=== PATIENT | male | born 1995 | race Caucasian/White ===

== ENCOUNTER → 2021-06-29 08:31 | Outpatient (BNVA) | payer OTHER, SELFPAY | PROVIDERS: Family Provider Nurse Practitioner Family; Visit Provider Nurse Practitioner Family | DX: Z20.822 Contact with and (suspected) exposure to COVID-19 (principal) | CPT/HCPCS: 87635 ==

== ENCOUNTER 2024-11-09 11:54 | Inpatient (IN) | payer SELFPAY ==
[2024-11-09 12:09] VITALS: BP 157/95; PULSE 88; RESP 19; TEMP 36.3; O2SAT 98; BMI 26.5
[2024-11-09 12:22] LABS: Basophils # 0.1 10^3/uL (0.0-0.1); Basophils % 0.6 %; Eosinophils # 0.2 10^3/uL (0.0-0.8); Eosinophils % 1.6 %; Hematocrit 44.5 % (37-53); Lymphocytes # 2.4 10^3/uL (0.8-4.8); Lymphocytes % 22.9 %; Mean Corpuscular HGB Conc 35.5 g/dL (30-55); Mean Corpuscular Hemoglobin 30.8 pg (27-33); Mean Corpuscular Volume 86.7 fl (82-101); Mean Platelet Volume 11.7 fL (7.4-10.4); Monocytes # 0.6 10^3/uL (0.2-0.9); Monocytes % 5.4 %; Neutrophils # 7.35 10^3/uL (1.8-7.7); Nucleated Red Blood Cells % 0 %; Platelet Count 213 10^3/cmm (157-399); Red Blood Count 5.13 10^6/uL (3.85-5.65); Red Cell Distribution Width 12.8 % (12.1-15.1); White Blood Count 10.65 10^3/uL (3.29-11.43)
[2024-11-09 12:39] LABS: Bacteria Urine None Seen /hpf; Hyaline Casts Urine 0-4 /lpf; RBC Urine 0-2 /hpf (0-2); Squamous Epithelial Cell Urine 0-5 /hpf (0-5); WBC Urine 0-5 /hpf (0-5)
[2024-11-09 12:43] LABS: Add Urine Microscopic? YES; Bilirubin Urine Neg (Negative); Blood Urine Neg (Negative); Glucose Urine UA Norm (Normal); Ketones Urine Negative (Negative); Leukocyte Esterase Urine Negative (Negative); Nitrate Urine Negative (Negative); Protein Urine Neg (Negative); Urine Appearance Clear (CLEAR); Urine Color Yellow (Yellow); Urobilinogen Urine Neg (Negative); pH Urine 8 (5-7)
[2024-11-09 12:58] LABS: Alanine Aminotransferase 15 U/L (0-41); Albumin Level 4.7 g/dL (3.5-5.2); Alkaline Phosphatase 68 U/L (40-130); Anion Gap 15.1 (5-19); Aspartate Amino Transferase 17 U/L (0-40); Blood Urea Nitrogen 11 mg/dL (6-20); Calcium 9.3 mg/dL (8.5-10.5); Carbon Dioxide 25 mmol/L (22-29); Chloride 103 mmol/L (98-107); Creatinine Clr Calc Pharmacy 121.4216; Globulin 2.9 g/dL (1.3-4.6); Glomerular Filtration Rate 89.6 mL/min (90-130); Glucose 99 mg/dL (65-115); Osmolality Calculated 287 mOsm/kg (285-295); Potassium 4.1 mmol/L (3.5-5.1); Sodium 139 mmol/L (136-145); Thyroid Stimulating Hormone 0.18 uIU/mL (0.27-4.20); Total Bilirubin 0.6 mg/dL (0.15-1.2); Total Protein 7.6 g/dL (6.6-8.7)
[2024-11-09 12:59] LABS: Acetaminophen < 5.0 ug/mL (10-30); Alcohol Level < 10 mg/dL (0-10); Amphetamines Screen Urine Positive (Negative); Barbiturates Screen Urine Negative (Negative); Benzodiazepines Screen Urine Negative (Negative); Cocaine Screen Urine Negative (Negative); Opiate Screen Urine Negative (Negative); PCP Screen Urine Negative (Negative); Salicylate < 0.3 mg/dL (3-10); THC Screen Urine Positive (Negative)
--- NOTE | 2024-11-09 14:02 | ED.C_ITS ---
HPI - Psych 2 General: Chief Complaint: Psychiatric Symptoms Stated Complaint: mhe Time Seen by Provider: 11/09/24 11:58 History of Present Illness: This patient is a 29-year-old white male who presents to the ER stating that he has been very depressed for quite some time. He states over the past month he has had thoughts of not wanting to live anymore. Has been much more severe over the past 2 days. Is been having thoughts of slitting his throat. He has done some cutting on his chest. States he does use drugs. States he has used everything but recently used meth 2 days ago. He does smoke marijuana on a regular basis. Occasionally drinks alcohol and has not drank any alcohol recently. States he is not on any medications for depression. He is never been admitted for suicidal ideation. Associated symptoms: Reports depression and suicidal ideation Related Data Home Medications ?Medication ?Instructions ?Recorded ?Confirmed No Known Home Medications 06/29/2110/13 Allergies Allergy/AdvReac Type Severity Reaction Status Date / Time No Known Allergies Allergy Verified 06/29/21 08:17 Review of Systems 2 Psych: Reports: depression and suicidal ideation PFS ED 2 PFSH: Social History (Updated 06/29/21 @ 08:17 by Ana Rojas NP) Smoking and tobacco/nicotine status: current every day tobacco/nicotine user e- cigarettes E-Cigarette Details: vaporizer device Physical Exam 2 Const: COMMON NORMALS: no acute distress, patient oriented x3 and no limitations GENERAL APPEARANCE: cooperative and comfortable HENMT: COMMON NORMALS: normocephalic, atraumatic, Normal nasal mucous membranes and turbinates present, moist oral mucous membranes and oropharynx normal HEAD & SCALP: normal to inspection, normocephalic and atraumatic F JOSE & SINUS: normal facial exam NOSE: Normal nasal mucous membranes and turbinates present Eye: COMMON NORMALS: Equal, round and reactive pupils present, EOMs intact bilaterally and conjunctivae normal GENERAL EYE: appearance normal, both eyes and all related structures CONJUNCTIVA: Yes conjunctivae normal PUPIL: Yes Equal, round and reactive pupils present Neck/C-Spine: COMMON NORMALS: supple and no JVD Chest: COMMONS NORMALS: normal inspection of the chest Resp: COMMON NORMALS: normal respiratory effort and clear to auscultation bilaterally AUSCULTATION: clear to auscultation bilaterally Cardio: COMMON NORMALS: no JVD, regular rate, regular rhythm, No gallops present (Cardio), No murmurs present (Cardio) and No rub (Cardio) RATE: r egular rate RHYTHM: regular rhythm GI: COMMON NORMALS: Normal to inspection, nondistended, normoactive bowel sounds present, Soft to palpation and non-tender AUSCULTATION: Yes normoactive bowel sounds PALPATION: Yes Soft to palpation : COMMON NORMALS: Yes no CVA tenderness BLADDER/KIDNEY EXAM: Yes no CVA tenderness Back/Pelvis: COMMON NORMALS: no CVA tenderness and thoracic and lumbar spine normal to inspection Extremity: COMMON NORMALS: normal to inspection Neuro: COMMON NORMALS: patient oriented x3 and CN's II-XII intact bilaterally Psych: COMMON NORMALS: mental status grossly normal, Normal thought process present, cooperative and speech normal APPEARANCE: Yes unkempt ATTITUDE: Y es calm ACTIVITY/MOTOR BEHAVIOR: Yes appropriate eye contact SPEECH: Yes normal speech MOOD & AFFECT: Yes depressed mood THOUGHT PROCESS: Normal thought process present THOUGHT CONTENT: Yes Suicidality present A TTENTION/CONCENTRATION: Yes attention grossly intact MEMORY/COGNITION: Yes memory grossly intact INSIGHT: questionable JUDGEMENT: Poor judgement present (Psych) Skin: COMMON NORMALS: no rashes or lesions noted, turgor normal and no jaundice GENERAL SKIN EXAM: no rashes or lesions noted and turgor normal Course 2 Vital Signs: Vital signs: Vital Signs Temperature 97.4 F L 11/09/24 12:09 Pulse Rate 88 11/09/24 12:09 Respiratory Rate 19 H 11/09/24 12:09 Blood Pressure 157/95 11/09/24 12:09 Pulse Oximetry 98 11/09/24 12:09 Oxygen Delivery Me thod Room Air 11/09/24 12:09 MDM - Psych Medical Decision Making Labs were normal. Urine drug screen was positive for THC and amphetamines. I discussed the case with Dr. Valverde, psychiatrist. He has accepted the patient. Patient will be moved to the Neuropsych Unit shortly. He is stable. Lab Data 11/09/24 12:06 11/09/24 12:06 Laboratory Results WBC 10.65 10^3/uL (3.29-11.43) 11/09/24 12:06 RBC 5.13 10^6/uL (3.85-5.65) 11/09/24 12:06 Hgb 15.80 g/dL (11.27-16.99) 11/09/24 12:06 Hct 44.5 % (37-53) 11/09/24 12:06 MCV 86.7 fl (82-101) 11/09/24 12:06 MCH 30.8 pg (27-33) 11/09/24 12:06 MCHC 35.5 g/dL (30-55) 11/09/24 12:06 RDW 12.8 % (12.1-15.1) 11/09/24 12:06 Plt Count 213 10^3/cmm (157-399) 11/09/24 12:06 MPV 11.7 fL (7.4-10.4) H 11/09/24 12:06 Neut % (Auto) 69.0 % 11/09/24 12:06 Lymph % (Auto) 22.9 % 11/09/24 12:06 [facility] % (Auto) 5.4 % 11/09/24 12:06 Eos % (Auto) 1.6 % 11/09/24 12:06 Baso % (Auto) 0.6 % 11/09/24 12:06 Neut # (Auto) 7.35 10^3/uL (1.8-7.7) 11/09/24 12:06 Lymph # (Auto) 2.4 10^3/uL (0.8-4.8) 11/09/24 12:06 [facility] # (Auto) 0.6 10^3/uL (0.2-0.9) 11/09/24 12:06 Eos # (Auto) 0.2 10^3/uL (0.0-0.8) 11/09/24 12:06 Baso # (Auto) 0.1 10^3/uL (0.0-0.1) 11/09/24 12:06 Nucleated RBC % (auto) 0 % 11/09/24 12:06 Nucleated RBCs # 0.0 /100WBC 11/09/24 12:06 Sodium 139 mmol/L (136-145) 11/09/24 12:06 Potassium 4.1 mmol/L (3.5-5.1) 11/09/24 12:06 Chloride 103 mmol/L (98-107) 11/09/24 12:06 Carbon Dioxide 25 mmol/L (22-29) 11/09/24 12:06 Anion Gap 15.1 (5-19) 11/09/24 12:06 BUN 11 mg/dL (6-20) 11/09/24 12:06 Creatinine 1.0 mg/dL (0.7-1.2) 11/09/24 12:06 GFR Calculation 89.6 mL/min (90-130) L 11/09/24 12:06 Glucose 99 mg/dL (65-115) 11/09/24 12:06 Calculated Osmolality 287 mOsm/kg (285-295) 11/09/24 12:06 Calcium 9.3 mg/dL (8.5-10.5) 11/09/24 12:06 Total Bilirubin 0.6 mg/dL (0.15-1.2) 11/09/24 12:06 AST 17 U/L (0-40) 11/09/24 12:06 ALT 15 U/L (0-41) 11/09/24 12:06 Alkaline Phosphatase 68 U/L (40-130) 11/09/24 12:06 Total Protein 7.6 g/dL (6.6-8.7) 11/09/24 12:06 Albumin 4.7 g/dL (3.5-5.2) 11/09/24 12:06 Globulin 2.9 g/dL (1.3-4.6) 11/09/24 12:06 TSH 0.18 uIU/mL (0.27-4.20) L 11/09/24 12:06 Urine Color Yellow (Yellow) 11/09/24 12:06 Urine Appearance Clear (CLEAR) 11/09/24 12:06 Urine pH 8 (5-7) A 11/09/24 12:06 Ur Specific [place] 1.010 (1.005-1.030) 11/09/24 12:06 Urine Protein Neg (Negative) 11/09/24 12:06 Urine Glucose (UA) Norm (Normal) 11/09/24 12:06 Urine Ketones Negative (Negative) 11/09/24 12:06 Urine Blood Neg (Negative) 11/09/24 12:06 Urine Nitrate Negative (Negative) 11/09/24 12:06 Urine Bilirubin Neg (Negative) 11/09/24 12:06 Urine Urobilinogen Neg mg/dL (Negative) 11/09/24 12:06 Ur Leukocyte Esterase Negative (Negative) 11/09/24 12:06 Urine RBC 0-2 /hpf (0-2) 11/09/24 12:06 Urine WBC 0-5 /hpf (0-5) 11/09/24 12:06 Ur Squamous Epith Cells 0-5 /hpf (0-5) 11/09/24 12:06 Amorphous Sediment Not Reportable 11/09/24 12:06 Urine Bacteria None seen /hpf (NONE) 11/09/24 12:06 Hyaline Casts 0-4 /lpf H 11/09/24 12:06 Salicylates < 0.3 mg/dL (3-10) L 11/09/24 12:06 Urine Opiates Screen Negative ng/mL (Negative) 11/09/24 12:06 Acetaminophen < 5.0 ug/mL (10-30) L 11/09/24 12:06 Ur Barbiturates Screen Negative ng/mL (Negative) 11/09/24 12:06 Ur Phencyclidine Scrn Negative ng/mL (Negative) 11/09/24 12:06 Ur Amphetamines Screen Positive ng/mL (Negative) H 11/09/24 12:06 U Benzodiazepines Scrn Negative ng/mL (Negative) 11/09/24 12:06 Urine Cocaine Screen Negative ng/mL (Negative) 11/09/24 12:06 U Marijuana (THC) Screen Positive ng/mL (Negative) H 11/09/24 12:06 Ethyl Alcohol < 10 mg/dL (0-10) 11/09/24 12:06 No radiology studies performed this visit Discharge Plan Discharge Patient Disposition: Admitted As Inpatient Clinical Impression: Suicidal ideation Condition: Stable Coding Level of Care Code ED In[employer] for [employer]
[2024-11-09 14:58] VITALS: BP 130/65; PULSE 65; O2SAT 97
[2024-11-09 15:16] VITALS: BP 108/64; PULSE 104; RESP 16; TEMP 36.9; O2SAT 98
[2024-11-09] MEDS: OLANZapine 5 mg ODT PO (15:44)
[2024-11-09] MEDS: acetaminophen 325 mg Tablet 650 MG PO (15:44)
[2024-11-09] MEDS: nicotine 2 mg Gum BUCCAL (16:22)
--- NOTE | 2024-11-09 16:30 | PC.NURSE ---
Admission note Patient arrived via EMS to the ED for [facility]. Patient reports thoughts of suicide with plan to slit his throat. Patient told this nurse during admission assessment that he needs to be on medications because he feels like if he doesn't get help, he will commit suicide. Patient reports that over the past 8 months to 1 year that he has been having intermittent suicidal thoughts. Patient has thought of hanging himself and shooting himself. Patient endorses depression and anxiety, denies AVH and HI. Patient says that he went on a drug urbano, taking excessive amount of methamphetamine recently. He had been clean for 8 months from meth Patient has numerous superficial lacerations to abdomen. Pt has an X carved into his chest from 2 days ago. Patient also has a couple of lacerations on the tops of each thigh near his groin. On the left side of his neck, it is reddneded like from rubbing it or from a rash. Patient has been cutting himself for about the last month. Patient unsure of last tetanus shot.
[2024-11-09] MEDS: haloperidol 5 mg Tablet PO (17:22)
[2024-11-09 20:31] VITALS: BP 134/79; PULSE 100; RESP 18; O2SAT 95
[2024-11-10 06:00] VITALS: BP 116/66; PULSE 71; RESP 18; O2SAT 98
[2024-11-10] MEDS: hyDROXYzine 25 mg Capsule 50 MG PO ×2 (10:26→18:36)
[2024-11-10] MEDS: nicotine 2 mg Gum BUCCAL ×3 (10:36→18:36)
--- NOTE | 2024-11-10 11:32 | P.NPUHP_ITS ---
Providers/Chief Complaint 2 Admitting Physician: Andrey Valverde MD Chief Complaint: mhe HPI NPU History of Present Illness Yovany Putnam is a 29 year old male who presented to the emergency department with the following report: Chief Complaint: Psychiatric Symptoms Stated Complaint: mhe Time Seen by Provider: 11/09/24 11:58 History of Present Illness: This patient is a 29-year-old white male who presents to the ER stating that he has been very depressed for quite some time. He states over the past month he has had thoughts of not wanting to live anymore. Has been much more severe over the past 2 days. Is been having thoughts of slitting his throat. He has done some cutting on his chest. States he does use drugs. States he has used everything but recently used meth 2 days ago. He does smoke marijuana on a regular basis. Occasionally drinks alcohol and has not drank any alcohol recently. States he is not on any medications for depression. He is never been admitted for suicidal ideation. Associated symptoms: Reports depression and suicidal ideation. He was admitted to the neuropsychiatric unit for definitive treatment of those issues. He is unknown to [facility] inpatient or outpatient psychiatric services. However he does report being in inpatient services when he was an adolescent or a child. He is currently not on medication and has not been for a long time. He reports he came to the hospital secondary to this conflict with his significant other recent relapse and her reporting that she felt he needed to have some treatment if there is any chance that they could have a functional relationship. He reports has been on lots of medications and only remembers having problems with Depakote in the past. He reports that he has had addiction issues for many years but has never really sought treatment. He has had exposure to tobacco alcohol and marijuana and other drugs and off and on relationship with methamphetamine. He reports that that was a very social or recreational relationship until about a year ago. He reports that he got really bad with he had been doing much better until recently he and his significant other relapsed again together and were out for like 5 days. There was some episode where they were having argument or conflict and he responded in a way that was not consistent with who he has ever been which she then made the choice to leave and take their children which were not biologically his but he has been a part of their life for the last 5 years. She initially had said she was not going to interact with him again but is now reporting that if he gets help that there was a chance. He reports being willing to do what ever to fix their situation. He reports that he had significant behavioral problems in his childhood. He reports that his mother completed suicide when he was 5 years old and this led to a cascade of events including him being in multiple group homes and foster care excetra. He ultimately dropped out of school and did not have a graduation however he did get his GED. He reports that he has had no other major relationships like this, has never been and has no biological children. He has not been in the . He denies any significant medical problems. He reported that he was open to a trial of medication for his depression and anxiety as he was feeling lost and unable to consider what he would do if she was not in his life. We discussed the risks, benefits and alternatives of a trial of Prozac he understood and agreed to proceed as is documented in this note. We also discussed that the social work team would be back tomorrow so we can start looking at possible treatment options that fit his needs. He understood and agreed to proceed as is documented in this note. Meds NPU Home Medications ?Medication ?Instructions ?Recorded ?Confirmed ?Last Taken ?Type No Known Home Medications 06/29/2110/13 Unknown History Allergies Allergy/AdvReac Type Severity Reaction Status Date / Time No Known Allergies Allergy Verified 06/29/21 08:17 [facility] NPU 2 PFS: Social History (Updated 06/29/21 @ 08:17 by Ana Rojas NP) Smoking and tobacco/nicotine status: current every day tobacco/nicotine user e- cigarettes E-Cigarette Details: vaporizer device Mental Status Exam 2 MSE Comments: This is a well-nourished well-developed white male in hospital scrubs with adequate grooming and eye contact. No abnormal movements except for psychomotor retardation. Cooperative with exam and mild to moderate distress. Speech was decreased rate and volume. Mood described as depressed and anxious, affect congruent. Thought process organized. Thought content: Patient denied suicidal or homicidal ideation, there were no delusions reported or noted, he denied current auditory or visual hallucinations. Attention and concentration were intact and memory was mostly reliable but none were formally tested. He is alert and oriented times 3. Insight, judgment and impulse control were limited versus impaired. Vitals/I&O/Wt Last Vital Signs Temp 98.4 F 11/09/24 15:16 Pulse 71 11/10/24 06:00 Resp 18 11/10/24 06:00 BP 116/66 11/10/24 06:00 Pulse Ox 98 11/10/24 06:00 O2 Del Method Room Air 11/09/24 15:23 Weight last 48 hrs Weight 80.059 kg Weight 83.915 kg Data NPU 11/09/24 12:06 11/09/24 12:06 A&P Assessment and plan (1) Suicidal ideation: (2) Methamphetamine use disorder, severe, dependence: (3) Depression: (4) Anxiety: Plan This is a 29-year-old white male with a long history of mental health and addiction issues with endorsement of trauma with genetic loading for mental health, addiction, and suicide who presents with a recent relapse was led to some challenging interactions between him and his significant other as well as suicidal thoughts. 1. Start Prozac 20 mg p.o. daily. 2. Continue every 15 minute checks for safety. 3. Encourage individual, group and milieu therapies. 4. Encourage sober living treatment after discharge at the highest level of care to which he is willing to commit. 5. Get collateral information. 6. Evaluate against the backdrop of the 96-hour hold. PDMP PDMP Reviewed: Not Reviewed Attestations NPU 2 Medical Necessity Statement*: Inpatient hospitalization is medically necessary and the clinically appropriate intervention at this time. We will monitor/initiate medications and make changes as indicated. He will be in the hospital for over 2 midnights. Likely length of stay 3-5 days. Coding Level of Care Code Acute Code for [facility] Diagnoses Suicidal ideation R45.851 Methamphetamine use disorder, severe, dependence F15.20 Depression F32.A Anxiety F41.9
[2024-11-10] MEDS: OLANZapine 5 mg ODT PO ×2 (12:12→20:30)
[2024-11-10 13:17] VITALS: BP 115/75; PULSE 80; RESP 17; TEMP 36.8; O2SAT 98
[2024-11-10 19:58] VITALS: BP 118/62; PULSE 84; RESP 16; TEMP 36.8; O2SAT 97
[2024-11-10] MEDS: trazodone 50 mg Tablet PO (20:30)
[2024-11-11 06:00] VITALS: BP 123/74; PULSE 80; RESP 16; O2SAT 99
[2024-11-11] MEDS: nicotine 2 mg Gum BUCCAL (07:51)
[2024-11-11] MEDS: hyDROXYzine 25 mg Capsule 50 MG PO ×2 (07:51→15:13)
[2024-11-11] MEDS: nicotine 21 mg Patch 1 PATCH TRANSDERMA (10:34)
[2024-11-11] MEDS: OLANZapine 5 mg ODT PO ×2 (10:46→19:49)
[2024-11-11 14:00] VITALS: BP 145/73; PULSE 85; RESP 16; O2SAT 98
[2024-11-11] MEDS: fluoxetine 20 mg Capsule PO (17:42)
--- NOTE | 2024-11-11 18:30 | P.NPUPN_ITS ---
Subjective NPU 2 Subjective: Patient presented today reporting that he was doing okay. He denied noticing anything of the medication but we had discussed the risks, benefits and alternatives of starting Prozac and he understood and agreed to proceed as is documented in this note. He continued to endorse a commitment to sobriety and to changing his mental health situation. He reports that his vital for his relationship. He did inquire as to how long he would likely be here and we discussed that being several days but he did not report that he was trying to push for discharge but just having a perspective. He denied any side effects to any medication. Mental Status Exam 2 MSE Comments: This is a well-nourished well-developed white male in hospital scrubs with adequate grooming and eye contact. No abnormal movements except for psychomotor retardation. Cooperative with exam and mild to moderate distress. Speech was decreased rate and volume. Mood described as depressed and anxious, affect congruent. Thought process organized. Thought content: Patient denied suicidal or homicidal ideation, there were no delusions reported or noted, he denied current auditory or visual hallucinations. Attention and concentration were intact and memory was mostly reliable but none were formally tested. He is alert and oriented times 3. Insight, judgment and impulse control were limited versus impaired. Vitals/I&O/Wt Last Vital Signs Temp 98.0 F 11/11/24 19:47 Pulse 76 11/11/24 19:47 Resp 18 11/11/24 19:47 BP 130/88 11/11/24 19:47 Pulse Ox 97 11/11/24 19:47 O2 Del Method Room Air 11/11/24 19:47 Data NPU 11/09/24 12:06 11/09/24 12:06 A&P Assessment and plan (1) Suicidal ideation: (2) Methamphetamine use disorder, severe, dependence: (3) Depression: (4) Anxiety: Plan This is a 29-year-old white male with a long history of mental health and addiction issues with endorsement of trauma with genetic loading for mental health, addiction, and suicide who presents with a recent relapse was led to some challenging interactions between him and his significant other as well as suicidal thoughts. 1. Started Prozac 20 mg p.o. daily. 2. Continue every 15 minute checks for safety. 3. Encourage individual, group and milieu therapies. 4. Encourage sober living treatment after discharge at the highest level of care to which he is willing to commit. 5. Get collateral information. 6. Evaluate against the backdrop of the 96-hour hold. PDMP PDMP Reviewed: Not Reviewed Attestations NPU 2 Medical Necessity Statement*: Inpatient hospitalization is medically necessary and the clinically appropriate intervention at this time. We will monitor/initiate medications and make changes as indicated. Likely length of stay 2-4 days. Coding Level of Care Code Acute Code for [facility] Fwd Diagnoses Suicidal ideation R45.851 Methamphetamine use disorder, severe, dependence F15.20 Depression F32.A Anxiety F41.9
[2024-11-11 19:47] VITALS: BP 130/88; PULSE 76; RESP 18; TEMP 36.7; O2SAT 97
[2024-11-11] MEDS: nicotine 4 mg lozenge MUCOUS MEM (20:33)
[2024-11-11] MEDS: trazodone 50 mg Tablet PO (20:33)
[2024-11-12 06:00] VITALS: BP 127/77; PULSE 93; RESP 18; TEMP 36.4; O2SAT 99
[2024-11-12] MEDS: hyDROXYzine 25 mg Capsule 50 MG PO ×2 (08:44→19:58)
[2024-11-12] MEDS: fluoxetine 20 mg Capsule PO (08:44)
[2024-11-12] MEDS: nicotine 2 mg Gum BUCCAL ×2 (08:44→16:57)
[2024-11-12] MEDS: OLANZapine 5 mg ODT PO (13:00)
--- NOTE | 2024-11-12 13:24 | W.PM.NPUPNS ---
Subjective NPU Subjective: Patient presented today reporting that he is doing okay. He reports that he has been talking to his and that the communication is going well. He reports that she is happy that he is here and getting treatment. We discussed needing to speak with her because initially the understanding was that she was really supportive of him going to rehab but now he is very much downplaying how significant his addiction challenges are or were. We discussed the importance of doing enough intensity in his recovery treatment to avoid having this happen again. Of course he is endorsing that this situation has more or less scared him straight. We discussed the fact that it rarely works that way. He denied any side effects to the medication. Mental Status Exam MSE Comments: This is a well-nourished well-developed white male in hospital scrubs with adequate grooming and eye contact. No abnormal movements except for mild psychomotor retardation. Cooperative with exam in mild distress. Speech was decreased rate and volume. Mood described as a little better, affect congruent. Thought process organized. Thought content: Patient denied suicidal or homicidal ideation, there were no delusions reported or noted, he denied current auditory or visual hallucinations. Attention and concentration were intact and memory was mostly reliable but none were formally tested. He is alert and oriented times 3. Insight, judgment and impulse control were limited versus impaired. Vitals/I&O/Wt Last Vital Signs Temp 97.5 F L 11/12/24 06:00 Pulse 93 11/12/24 06:00 Resp 18 11/12/24 06:00 BP 127/77 11/12/24 06:00 Pulse Ox 99 11/12/24 06:00 O2 Del Method Room Air 11/12/24 06:00 Data NPU 11/09/24 12:06 11/09/24 12:06 A&P Assessment and plan (1) Suicidal ideation: (2) Methamphetamine use disorder, severe, dependence: (3) Depression: (4) Anxiety: Plan This is a 29-year-old white male with a long history of mental health and addiction issues with endorsement of trauma with genetic loading for mental health, addiction, and suicide who presents with a recent relapse was led to some challenging interactions between him and his significant other as well as suicidal thoughts. 1. Started Prozac 20 mg p.o. daily. 2. Continue every 15 minute checks for safety. 3. Encourage individual, group and milieu therapies. 4. Encourage sober living treatment after discharge at the highest level of care to which he is willing to commit. 5. Get collateral information. 6. Evaluate against the backdrop of the 96-hour hold. PDMP PDMP Reviewed: Not Reviewed Attestations NPU Medical Necessity Statement*: Inpatient hospitalization is medically necessary and the clinically appropriate intervention at this time. We will monitor/initiate medications and make changes as indicated. Likely length of stay 1-3 days. Coding Level of Care Code Acute Code for [facility] Fwd Diagnoses Suicidal ideation R45.851 Methamphetamine use disorder, severe, dependence F15.20 Depression F32.A Anxiety F41.9
[2024-11-12 14:00] VITALS: BP 129/89; PULSE 94; RESP 16; TEMP 36.5; O2SAT 95
[2024-11-12] MEDS: trazodone 50 mg Tablet PO ×2 (19:58→21:53)
[2024-11-12 20:05] VITALS: BP 131/80; PULSE 86; RESP 16; O2SAT 97
[2024-11-12] MEDS: nicotine 4 mg lozenge MUCOUS MEM (21:53)
[2024-11-13 06:00] VITALS: BP 109/66; PULSE 88; RESP 18; TEMP 36.8; O2SAT 97
[2024-11-13] MEDS: nicotine 2 mg Gum BUCCAL ×3 (07:49→19:55)
[2024-11-13] MEDS: hyDROXYzine 25 mg Capsule 50 MG PO ×4 (07:49→21:39)
[2024-11-13] MEDS: fluoxetine 20 mg Capsule PO (07:49)
--- NOTE | 2024-11-13 08:02 | PC.NURSE ---
PATIENT CAME TO DESK REQUESTING SOMTHING FOR ANXIETY. STATED THE PATIENT THAT IS ON THE PHONE WAS UPSETTING HIM. VISTARIL 50MG WAS GIVEN WELL A NICOTINE GUM.
[2024-11-13] MEDS: OLANZapine 5 mg ODT PO (12:14)
[2024-11-13 14:00] VITALS: BP 131/81; PULSE 74; RESP 18; TEMP 37.1; O2SAT 96
[2024-11-13] MEDS: haloperidol 5 mg Tablet PO (15:45)
[2024-11-13] MEDS: nicotine 4 mg lozenge MUCOUS MEM ×3 (15:45→21:58)
--- NOTE | 2024-11-13 19:00 | P.NPUPN_ITS ---
Subjective NPU 2 Subjective: Patient presented today reporting that things are going fairly well. He continued to be resistant to the idea of an intense sober living treatment program but does report an openness to outpatient treatment at [facility] and possibly some outpatient rehab resources. He endorsed feeling better with the medication and denied any side effects. He was excited about the idea of discharge likely tomorrow. Mental Status Exam 2 MSE Comments: This is a well-nourished well-developed white male in hospital scrubs with adequate grooming and eye contact. No abnormal movements except for mild psychomotor retardation. Cooperative with exam in mild distress. Speech was decreased rate and volume. Mood described as better, affect congruent. Thought process organized. Thought content: Patient denied suicidal or homicidal ideation, there were no delusions reported or noted, he denied current auditory or visual hallucinations. Attention and concentration were intact and memory was mostly reliable but none were formally tested. He is alert and oriented times 3. Insight, judgment and impulse control were limited and improving. Vitals/I&O/Wt Last Vital Signs Temp 97.7 F 11/13/24 20:10 Pulse 93 11/13/24 20:10 Resp 18 11/13/24 20:10 BP 141/82 11/13/24 20:10 Pulse Ox 96 11/13/24 20:10 O2 Del Method Room Air 11/13/24 20:10 Data NPU 11/09/24 12:06 11/09/24 12:06 A&P Assessment and plan (1) Suicidal ideation: (2) Methamphetamine use disorder, severe, dependence: (3) Depression: (4) Anxiety: Plan This is a 29-year-old white male with a long history of mental health and addiction issues with endorsement of trauma with genetic loading for mental health, addiction, and suicide who presents with a recent relapse was led to some challenging interactions between him and his significant other as well as suicidal thoughts. 1. Started Prozac 20 mg p.o. daily. 2. Continue every 15 minute checks for safety. 3. Encourage individual, group and milieu therapies. 4. Encourage sober living treatment after discharge at the highest level of care to which he is willing to commit. 5. Get collateral information. 6. Evaluate against the backdrop of the 96-hour hold. PDMP PDMP Reviewed: Not Reviewed Attestations NPU 2 Medical Necessity Statement*: Inpatient hospitalization is medically necessary and the clinically appropriate intervention at this time. We will monitor/initiate medications and make changes as indicated. Likely length of stay 1-2 days. Coding Level of Care Code Acute Code for g Fwd Diagnoses Suicidal ideation R45.851 Methamphetamine use disorder, severe, dependence F15.20 Depression F32.A Anxiety F41.9
[2024-11-13 20:10] VITALS: BP 141/82; PULSE 93; RESP 18; TEMP 36.5; O2SAT 96
[2024-11-13] MEDS: trazodone 50 mg Tablet PO ×2 (20:17→21:39)
[2024-11-14 06:00] VITALS: BP 124/65; PULSE 69; RESP 15; TEMP 36.4; O2SAT 98
[2024-11-14] MEDS: nicotine 2 mg Gum BUCCAL ×3 (07:58→13:58)
[2024-11-14] MEDS: fluoxetine 20 mg Capsule PO (07:58)
[2024-11-14] MEDS: hyDROXYzine 25 mg Capsule 50 MG PO (07:58)
[2024-11-14 10:40] VITALS: BP 124/65; PULSE 69; RESP 15; TEMP 36.4; O2SAT 98
[2024-11-14 12:11] VITALS: BP 145/88; PULSE 115; RESP 16; TEMP 36.7; O2SAT 96
--- NOTE | 2024-11-14 12:14 | W.PM.NPUDCS ---
Diagnoses at Discharge Discharge Diagnosis (1) Suicidal ideation: Status: Resolved (2) Methamphetamine use disorder, severe, dependence: Status: Acute (3) Depression: Status: Acute (4) Anxiety: Status: Acute Reason for Visit Reason for Visit: mhe Brief History: HPI NPU History of Present Illness Yovany Putnam is a 29 year old male who presented to the emergency department with the following report: Chief Complaint: Psychiatric Symptoms Stated Complaint: mhe Time Seen by Provider: 11/09/24 11:58 History of Present Illness: This patient is a 29-year-old white male who presents to the ER stating that he has been very depressed for quite some time. He states over the past month he has had thoughts of not wanting to live anymore. Has been much more severe over the past 2 days. Is been having thoughts of slitting his throat. He has done some cutting on his chest. States he does use drugs. States he has used everything but recently used meth 2 days ago. He does smoke marijuana on a regular basis. Occasionally drinks alcohol and has not drank any alcohol recently. States he is not on any medications for depression. He is never been admitted for suicidal ideation. Associated symptoms: Reports depression and suicidal ideation. He was admitted to the neuropsychiatric unit for definitive treatment of those issues. He is unknown to [facility] inpatient or outpatient psychiatric services. However he does report being in inpatient services when he was an adolescent or a child. He is currently not on medication and has not been for a long time. He reports he came to the hospital secondary to this conflict with his significant other recent relapse and her reporting that she felt he needed to have some treatment if there is any chance that they could have a functional relationship. He reports has been on lots of medications and only remembers having problems with Depakote in the past. He reports that he has had addiction issues for many years but has never really sought treatment. He has had exposure to tobacco alcohol and marijuana and other drugs and off and on relationship with methamphetamine. He reports that that was a very social or recreational relationship until about a year ago. He reports that he got really bad with he had been doing much better until recently he and his significant other relapsed again together and were out for like 5 days. There was some episode where they were having argument or conflict and he responded in a way that was not consistent with who he has ever been which she then made the choice to leave and take their children which were not biologically his but he has been a part of their life for the last 5 years. She initially had said she was not going to interact with him again but is now reporting that if he gets help that there was a chance. He reports being willing to do what ever to fix their situation. He reports that he had significant behavioral problems in his childhood. He reports that his mother completed suicide when he was 5 years old and this led to a cascade of events including him being in multiple group homes and foster care excetra. He ultimately dropped out of school and did not have a graduation however he did get his GED. He reports that he has had no other major relationships like this, has never been and has no biological children. He has not been in the . He denies any significant medical problems. He reported that he was open to a trial of medication for his depression and anxiety as he was feeling lost and unable to consider what he would do if she was not in his life. We discussed the risks, benefits and alternatives of a trial of Prozac he understood and agreed to proceed as is documented in this note. We also discussed that the social work team would be back tomorrow so we can start looking at possible treatment options that fit his needs. He understood and agreed to proceed as is documented in this note. Hospital Course Hospital Course He slowly acclimated to the individual, group and milieu therapies. He presented endorsing depression, anxiety, active drug use and recent difficulties with his significant other related to his use which led to his hospitalization. He started Prozac 20 mg p.o. daily.. He was observed against the backdrop of his 96-hour hold to identify whether there is still a risk for harm to himself or others. The initiation of the medication, his abstinence from substances as well as the treatment milieu had a positive response. He worked with the social work team to establish appropriate follow-up services and was connected to appropriate community resources. He was able to contract for safety outside of the hospital prior to discharge. During the hospitalization, patient had routine laboratory studies which were within normal limits except for few outliers. Additionally there was a general medical evaluation which was also within normal limits and revealed no new acute processes. At the time of discharge, he denied psychosis or lethality. Mood and anxiety were well managed. Patient endorsed a plan to avoid all drugs of abuse, and agreed to follow-up with the aftercare recommendations of the treatment team. Patient was evaluated and deemed to be absent credible lethality, and achieved maximum benefit from inpatient hospitalization, so he was discharged. Mental Status Exam MSE Comments: This is a well-nourished well-developed white male in hospital scrubs with adequate grooming and eye contact. No abnormal movements except for mild psychomotor retardation. Cooperative with exam in mild distress. Speech was more normal rate and volume. Mood described as better, affect congruent. Thought process organized. Thought content: Patient denied suicidal or homicidal ideation, there were no delusions reported or noted, he denied current auditory or visual hallucinations. Attention and concentration were intact and memory was mostly reliable but none were formally tested. He is alert and oriented times 3. Insight, judgment and impulse control were limited and improving. Discharge Data Studies Completed and Pending: Laboratory Results WBC 10.65 10^3/uL (3. 29-11.43) 11/09/24 12:06 RBC 5.13 10^6/uL (3.8 5-5.65) 11/09/24 12:06 Hgb 15.80 g/dL (11.27 -16.99) 11/09/24 12:06 Hct 44.5 % (37-53) 11/09/24 12:06 MCV 86.7 fl (82-101) 11/09/24 12:06 MCH 30.8 pg (27-33) 11/09/24 12:06 MCHC 35.5 g/dL (30-55) 11/09/24 12:06 RDW 12.8 % (12.1-15.1 ) 11/09/24 12:06 Plt Count 213 10^3/cmm (157 -399) 11/09/24 12:06 MPV 11.7 fL (7.4-10.4 ) H 11/09/24 12:06 Neut % (Auto) 69.0 % 11/09/24 12:06 Lymph % (Auto) 22.9 % 11/09/24 12:06 [facility] [place] [facility] % (Auto) 5.4 % 11/09/24 12:06 Eos % (Auto) 1.6 % 11/09/24 12:06 Baso % (Auto) 0.6 % 11/09/24 12:06 Neut # (Auto) 7.35 10^3/uL (1.8 -7.7) 11/09/24 12:06 Lymph # (Auto) 2.4 10^3/uL (0.8- 4.8) 11/09/24 12:06 [facility] # (Auto) 0.6 10^3/uL (0.2- 0.9) 11/09/24 12:06 Eos # (Auto) 0.2 10^3/uL (0.0- 0.8) 11/09/24 12:06 Baso # (Auto) 0.1 10^3/uL (0.0- 0.1) 11/09/24 12:06 Nucleated RBC % (a uto) 0 % 11/09/24 12:06 Nucleated RBCs # 0.0 /100WBC 11/09/24 12:06 Sodium 139 mmol/L (136-1 45) 11/09/24 12:06 Potassium 4.1 mmol/L (3.5-5 .1) 11/09/24 12:06 Chloride 103 mmol/L (98-10 7) 11/09/24 12:06 Carbon Dioxide 25 mmol/L (22-29) 11/09/24 12:06 Anion Gap 15.1 (5-19) 11/09/24 12:06 BUN 11 mg/dL (6-20) 11/09/24 12:06 Creatinine 1.0 mg/dL (0.7-1. 2) 11/09/24 12:06 GFR Calculation 89.6 mL/min (90-1 30) L 11/09/24 12:06 Glucose 99 mg/dL (65-115) 11/09/24 12:06 Calculated Osmolal ity 287 mOsm/kg (285- 295) 11/09/24 12:06 Calcium 9.3 mg/dL (8.5-10 .5) 11/09/24 12:06 Total Bilirubin 0.6 mg/dL (0.15-1 .2) 11/09/24 12:06 AST 17 U/L (0-40) 11/09/24 12:06 ALT 15 U/L (0-41) 11/09/24 12:06 Alkaline Phosphata se 68 U/L (40-130) 11/09/24 12:06 Total Protein 7.6 g/dL (6.6-8.7 ) 11/09/24 12:06 Albumin 4.7 g/dL (3.5-5.2 ) 11/09/24 12:06 Globulin 2.9 g/dL (1.3-4.6 ) 11/09/24 12:06 TSH 0.18 uIU/mL (0.27 -4.20) L 11/09/24 12:06 Urine Color Yellow (Yellow) 11/09/24 12:06 Urine Appearance Clear (CLEAR) 11/09/24 12:06 Urine pH 8 (5-7) A 11/09/24 12:06 Ur Specific Gravit y 1.010 (1.005-1.0 30) 11/09/24 12:06 Urine Protein Neg (Negative) 11/09/24 12:06 Urine Glucose (UA) Norm (Normal) 11/09/24 12:06 Urine Ketones Negative (Negati ve) 11/09/24 12:06 Urine Blood Neg (Negative) 11/09/24 12:06 Urine Nitrate Negative (Negati ve) 11/09/24 12:06 Urine Bilirubin Neg (Negative) 11/09/24 12:06 Urine Urobilinogen Neg mg/dL (Negati ve) 11/09/24 12:06 Ur Leukocyte Tiera ase Negative (Negati ve) 11/09/24 12:06 Urine RBC 0-2 /hpf (0-2) 11/09/24 12:06 Urine WBC 0-5 /hpf (0-5) 11/09/24 12:06 Ur Squamous Epith Cells 0-5 /hpf (0-5) 11/09/24 12:06 Amorphous Sediment Not Reportable 11/09/24 12:06 Urine Bacteria None seen /hpf (N ONE) 11/09/24 12:06 Hyaline Casts 0-4 /lpf H 11/09/24 12:06 Salicylates < 0.3 mg/dL (3-10 ) L 11/09/24 12:06 Urine Opiates Scre en Negative ng/mL (N egative) 11/09/24 12:06 Acetaminophen < 5.0 ug/mL (10-3 0) L 11/09/24 12:06 Ur Barbiturates Sc reen Negative ng/mL (N egative) 11/09/24 12:06 Ur Phencyclidine S crn Negative ng/mL (N egative) 11/09/24 12:06 Ur Amphetamines Sc reen Positive ng/mL (N egative) H 11/09/24 12:06 U Benzodiazepines Scrn Negative ng/mL (N egative) 11/09/24 12:06 Urine Cocaine Scre en Negative ng/mL (N egative) 11/09/24 12:06 U Marijuana (THC) Screen Positive ng/mL (N egative) H 11/09/24 12:06 Ethyl Alcohol < 10 mg/dL (0-10) 11/09/24 12:06 Vitals: Last Vital Signs Temp 98.1 F 11/14/24 14:00 Pulse 115 H 11/14/24 14:00 Resp 16 11/14/24 14:00 BP 145/88 11/14/24 14:00 Pulse Ox 98 11/14/24 14:00 O2 Del Method Room Air 11/14/24 14:00 Discharge Plan Discharge Patient Disposition: Home Condition: Stable Prescriptions: New trazodone 50 mg Tablet 50 mg PO BEDTIME PRN (Reason: Sleep) 30 Days Qty: 30 1RF fluoxetine 20 mg Capsule 20 mg PO DAILY 30 Days Qty: 30 1RF hydroxyzine pamoate 25 mg Capsule 50 mg PO Q6H PRN (Reason: Anxiety) 30 Days Qty: 120 1RF No Action No Known Home Medications Discharge Orders: Discharge Order (Routine); Ordered 11/14/24 Ordered By: Andrey Valverde Referrals: [facility] [Outside] - 11/18/24 10:30 am (Assessment for services with [place].) Isaacs,ARNOLD Santiago [Family Provider] - Discharge Diet: Regular Discharge Activity: Resume usual activity Patient Instructions: Depression (DC), Help Prevent Suicide (DC), Suicide Prevention (DC), Opioid Safety Discharge Attestations NPU Time Spent in Discharge Care*: less than 30 min Specific Discharge Activities: Specific discharge activities: educating patient, discussing with telephonic nurse case manager/social workers/dc planners, documenting/other paperwork and evaluating patient/reviewing data Coding Level of Care Code Acute Code for Chg Fwd Diagnoses Suicidal ideation R45.851 Methamphetamine use disorder, severe, dependence F15.20 Depression F32.A Anxiety F41.9
[2024-11-14 14:00] VITALS: BP 145/88; PULSE 115; RESP 16; TEMP 36.7; O2SAT 98
== END 2024-11-14 15:15 | disposition home or self-care (01) | DRG 881 ==
LOC: ER 14:00 → NP 14:31
PROVIDERS: Admitting Provider Psychiatry & Neurology Psychiatry; Emergency Provider Emergency Medicine; Family Provider Nurse Practitioner Family; Visit Provider Psychiatry & Neurology Psychiatry
DX: F32.A Depression, unspecified (principal); R45.851 Suicidal ideations; F15.20 Other stimulant dependence, uncomplicated; F41.9 Anxiety disorder, unspecified; F17.290 Nicotine dependence, other tobacco product, uncomplicated; Z81.8 Family history of other mental and behavioral disorders
CPT/HCPCS: 80053; 80306; 80307; 81001; 84443; 85025; 97150; 97165; 99285; J9999

== ENCOUNTER 2024-11-22 21:16 | Emergency (ER) | payer SELFPAY ==
[2024-11-22 21:20] VITALS: BP 147/95; PULSE 95; RESP 20; TEMP 36.6; O2SAT 96; BMI 22.9
--- NOTE | 2024-11-22 21:29 | PC.NURSE ---
Addendum entered by Lilly Kline LPN 11/22/24 21:30: provider notified. Original Note: pt was asked to give a urine sample. pt refused and stated he would not give urine or change into paper scrubs. pt states he wants to talk to the doctor and leave.
--- NOTE | 2024-11-22 21:40 | PC.NURSE ---
provider informed pt he did not have to dress out in paper scrubs. pt in street clothes at this time.
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
[2024-11-22 21:59] LABS: Basophils # 0.1 10^3/uL (0.0-0.1); Basophils % 0.9 %; Eosinophils # 0.2 10^3/uL (0.0-0.8); Eosinophils % 1.4 %; Hematocrit 43.7 % (37-53); Lymphocytes # 2.6 10^3/uL (0.8-4.8); Lymphocytes % 24.8 %; Mean Corpuscular HGB Conc 33.9 g/dL (30-55); Mean Corpuscular Hemoglobin 29.8 pg (27-33); Mean Corpuscular Volume 88.1 fl (82-101); Mean Platelet Volume 10.3 fL (7.4-10.4); Monocytes # 0.8 10^3/uL (0.2-0.9); Monocytes % 8.1 %; Neutrophils # 6.72 10^3/uL (1.8-7.7); Neutrophils % 64.6 %; Nucleated Red Blood Cells % 0 %; Platelet Count 251 10^3/cmm (157-399); Red Blood Count 4.96 10^6/uL (3.85-5.65); Red Cell Distribution Width 13.2 % (12.1-15.1)
[2024-11-22 22:12] LABS: Amphetamines Screen Urine Positive (Negative); Barbiturates Screen Urine Negative (Negative); Benzodiazepines Screen Urine Negative (Negative); Cocaine Screen Urine Negative (Negative); Opiate Screen Urine Negative (Negative); PCP Screen Urine Negative (Negative); THC Screen Urine Positive (Negative)
[2024-11-22 22:15] LABS: Alanine Aminotransferase 22 U/L (0-41); Albumin Level 4.3 g/dL (3.5-5.2); Alkaline Phosphatase 72 U/L (40-130); Anion Gap 17.6 (5-19); Aspartate Amino Transferase 22 U/L (0-40); Blood Urea Nitrogen 14 mg/dL (6-20); Calcium 8.9 mg/dL (8.5-10.5); Carbon Dioxide 22 mmol/L (22-29); Chloride 101 mmol/L (98-107); Creatinine Clr Calc Pharmacy 142.8783; Globulin 2.8 g/dL (1.3-4.6); Glucose 98 mg/dL (65-115); Osmolality Calculated 284 mOsm/kg (285-295); Potassium 3.6 mmol/L (3.5-5.1); Salicylate 0.5 mg/dL (3-10); Sodium 137 mmol/L (136-145); Total Bilirubin 0.6 mg/dL (0.15-1.2); Total Protein 7.1 g/dL (6.6-8.7)
[2024-11-22 22:18] LABS: Acetaminophen < 5.0 ug/mL (10-30); Alcohol Level < 10 mg/dL (0-10)
--- NOTE | 2024-11-23 02:51 | PC.NURSE ---
Pt. spoke with cash posting representative for [facility] and stated that he refused to go anywhere but [facility]
--- NOTE | 2024-11-23 04:09 | PC.NURSE ---
Pt. accepted at [facility] in [place]. When I called nurse to give report, I explained that the patient requested their facility and only their facility and asked if he had been there in the past. The nurse taking report states wait a minute, I know this man. His ex girlfriend works here, she moved here to get away from him. The nurse states that their may be a safety issue or conflict of interest and needs to confirm with her admin. before taking the patient.
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
[2024-11-23 04:28] VITALS: BP 127/74; PULSE 75; RESP 20; O2SAT 96
--- NOTE | 2024-11-23 04:29 | PC.NURSE ---
Pt. was explained that [facility] denied admission, but was offered admission at [facility] but they required his volunteered permission. The patient asked if [facility] was by [place] , and I explained it was still away from [place]. Pt. denies SI and HI and states that he wants to be discharged.
== END 2024-11-23 04:31 | disposition home or self-care (01) ==
PROVIDERS: Emergency Provider Emergency Medicine
DX: F33.2 Major depressive disorder, recurrent severe without psychotic features (principal); Z63.0 Problems in relationship with spouse or partner; F15.10 Other stimulant abuse, uncomplicated; F17.290 Nicotine dependence, other tobacco product, uncomplicated
CPT/HCPCS: 36415; 80053; 80306; 80307; 85025; 99283

== ENCOUNTER 2025-01-18 16:48 | Emergency (ER) | payer SELFPAY ==
[2025-01-18 16:52] VITALS: BP 124/80; PULSE 75; RESP 16; TEMP 36.7; O2SAT 98; BMI 27.2
--- NOTE | 2025-01-18 17:03 | W.ED.ANIMALB ---
HPI - Animal Bite General: Chief Complaint: Animal Bite Stated Complaint: bite by a racoon Time Seen by Provider: 01/18/25 16:57 Source: patient Mode of arrival: ambulatory Limitations: no limitations History of Present Illness: 29-year-old male states he was bit by a raccoon 4 days ago left ring finger he states activity was not acting right and concerned about rabies he denies any pain at the puncture site he said no redness or fever he is up-to-date on his tetanus. No other complaints this time Associated symptoms: Deny fever(s) Related Data Home Medications ?Medication ?Instructions ?Recorded ?Confirmed No Known Home Medications 06/29/21 11/09/24 Previous Rx's ?Medication ?Instructions ?Recorded fluoxetine 20 mg capsule 20 mg PO DAILY 30 days #30 caps 11/14/24 hydroxyzine pamoate 25 mg capsule 50 mg (2 x 25 mg) PO Q6H PRN 11/14/24 Anxiety 30 days #120 caps trazodone 50 mg tablet 50 mg PO BEDTIME PRN Sleep 30 days 11/14/24 #30 tabs Allergies Allergy/AdvReac Type Severity Reaction Status Date / Time No Known Allergies Allergy Verified 06/29/21 08:17 Review of Systems Const: Denies: fever(s) Card: Denies: chest pain GI: Denies: abdominal pain Musc: Denies: extremity pain Skin/Breast: Denies: erythema PFSH ED PFSH: Social History Smoking and tobacco/nicotine status: current every day tobacco/nicotine user e-cigarettes E-Cigarette Details: vaporizer device Physical Exam Const: COMMON NORMALS: no acute distress HENMT: COMMON NORMALS: normocephalic HEAD & SCALP: normocephalic Eye: COMMON NORMALS: conjunctivae normal CONJUNCTIVA: Yes conjunctivae normal Chest: COMMONS NORMALS: normal inspection of the chest Resp: COMMON NORMALS: normal respiratory effort Extremity: NARRATIVE EXTREMITY EXAM: No wounds noted on the finger no erythema Course Vital Signs: Vital signs: Vital Signs Temperature 98.1 F 01/18/25 16:52 Pulse Rate 75 01/18/25 16:52 Respiratory Rate 16 01/18/25 16:52 Blood Pressure 124/80 01/18/25 16:52 Pulse Oximetry 98 01/18/25 16:52 Oxygen Delivery Me thod Room Air 01/18/25 16:52 MDM - Animal Bite Medical Decision Making Patient presents here with a raccoon bite we will start him on rabies prophylaxis. No radiology studies performed this visit Discharge Plan Discharge Patient Disposition: Home Clinical Impression: Bite by animal Condition: Stable Prescriptions: No Action No Known Home Medications trazodone 50 mg Tablet 50 mg PO BEDTIME PRN (Reason: Sleep) 30 Days Qty: 30 1RF fluoxetine 20 mg Capsule 20 mg PO DAILY 30 Days Qty: 30 1RF hydroxyzine pamoate 25 mg Capsule 50 mg PO Q6H PRN (Reason: Anxiety) 30 Days Qty: 120 1RF Discharge Orders: Discharge ED (Routine); Ordered 01/18/25 Ordered By: Jocelyn Plata Discharge Diet: Advance as tolerated Discharge Activity: Resume usual activity Patient Instructions: Rabies (ED) Print Language: Yakut Coding Level of Care Code ED Supervisor Partial Denture Department for Bebe Lara
[2025-01-18] MEDS: rabies vaccine 2.5 unit SDV IM (17:12)
[2025-01-18] MEDS: rabies IG 300 unit/mL SDV 1 mL 1710 UNIT IM (17:15)
[2025-01-18 18:06] VITALS: BP 132/80; PULSE 75; RESP 16; O2SAT 99
== END 2025-01-18 18:07 | disposition home or self-care (01) ==
PROVIDERS: Emergency Provider Emergency Medicine
DX: Z20.3 Contact with and (suspected) exposure to rabies (principal); Z29.14 Encounter for prophylactic rabies immune globulin; F17.290 Nicotine dependence, other tobacco product, uncomplicated
CPT/HCPCS: 90375; 90471; 90675; 99283

== ENCOUNTER 2025-01-27 15:30 | Oncology outpatient (recurring) (ONCR) | payer SELFPAY ==
[2025-01-21 15:27] VITALS: BP 133/83; PULSE 87; RESP 17; TEMP 37.2; O2SAT 99
[2025-01-21] MEDS: rabies vaccine 2.5 unit SDV IM (15:36)
== END 2025-02-10 23:59 | disposition home or self-care (01) ==
PROVIDERS: Visit Provider Emergency Medicine
DX: Z53.9 Procedure and treatment not carried out, unspecified reason (principal)
CPT/HCPCS: 90471; 90675